=== PATIENT | female | born 1995 | race Caucasian/White ===

== ENCOUNTER 2020-07-24 15:46 | Emergency (ER) | payer OTHER ==
[~2020-07-24] VITALS: Ht 167.6 cm; Wt 61.4 kg
[2020-07-24 16:01] VITALS: BP 114/75
[2020-07-24] MEDS ORDERED: traMADol HCL 50 MG TAB PO ONE (16:45)
== END 2020-07-24 17:50 | disposition home or self-care (01) ==
LOC: ER 15:46 → EDBD 15:46 → ER 17:50
DX: S83.92XA Sprain of unspecified site of left knee, initial encounter (principal); W03.XXXA Other fall on same level due to collision with another person, initial encounter; Y93.89 Activity, other specified; Y92.89 Other specified places as the place of occurrence of the external cause; Y99.8 Other external cause status
CPT/HCPCS: 29505; 73562

== ENCOUNTER 2021-07-11 18:31 | Emergency (ER) | payer OTHER ==
[~2021-07-11] VITALS: Ht 170.2 cm; Wt 70.8 kg
[2021-07-11 18:31] VITALS: BP 111/70
[2021-07-11] MEDS ORDERED: traMADol HCL 50 MG TAB PO ONE (21:15)
== END 2021-07-11 23:21 | disposition home or self-care (01) ==
LOC: ER 18:34
DX: S93.402A Sprain of unspecified ligament of left ankle, initial encounter (principal); X58.XXXA Exposure to other specified factors, initial encounter; Y93.89 Activity, other specified; Y92.89 Other specified places as the place of occurrence of the external cause; Y99.8 Other external cause status
CPT/HCPCS: 29515; 73610